=== PATIENT | female | born 1945 | race Caucasian/White ===

== ENCOUNTER 2022-07-01 13:01 | Outpatient (CLI) | payer MEDICARE, SELFPAY ==
--- NOTE | ~2022-07-01 | CT_ITS ---
EXAMINATION: CT abdomen pelvis wo con DATE: 07/01/2022 13:32 INDICATION: Calcium kidney stone TECHNIQUE: Computed tomography (CT) of the abdomen and pelvis was performed without intravenous contr ast. Automated exposure control and iterative reconstruction technique were employed. Exam dose: 173 .05 mGy-cm total exam DLP. COMPARISON: 07/01/2022 KUB FINDINGS: There is minimal dependent primarily right lower lobe atelectasis. Bilateral breast implants. Normal heart size. No pericardial or pleural effusion. The liver, gallbladder, spleen are unremarkable. No pancreatic mass lesion is evident. No bile duct o r pancreatic duct dilatation. Normal morphology of the kidneys. There are approximately 4 nonobstructing right renal calculi. No right ureteral calculus or hydrouret eronephrosis. Approximate 3 subtle nonobstructing left renal calculi. No left ureteral calculus or hydroureteroneph rosis is evident. The urinary bladder is evacuated. Normal appendix. Diverticulosis of the colon; no CT evidence of diverticulitis. No bowel obstruction, bowel wall thick ening, pneumatosis or intraperitoneal free air. 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 Right L5 pars interart icularis defect. IMPRESSION: Mild bilateral nonobstructive nephrolithiasis No ureteral calculus or hydroureteronephrosis Normal appendix Diverticulosis of the colon Reviewed, dictated and finalized at [facility]. Reviewed, dictated and finalized at [facility].
--- NOTE | ~2022-07-01 | XR_ITS ---
EXAM: XR abdomen/kub 1V DATE: 07/01/2022 13:32 HISTORY: CALCIUM KIDNEY STONE . COMPARISON: CT abdomen pelvis, same date. FINDINGS: Clear lung bases. Normal bowel gas pattern. No organomegaly. Scattered punctate calcificat ions over the bilateral renal shadows. Calcified diverticulum. Scattered mild vascular calcifications . Degenerative changes in the lumbar spine and bilateral hips. IMPRESSION: Bilateral nephrolithiasis. Reviewed, dictated and finalized at [facility]. IMPRESSION: Bilateral nephrolithiasis.
== END 2022-07-01 13:02 | disposition home or self-care (01) ==
PROVIDERS: Visit Provider Urology
DX: N20.0 Calculus of kidney (principal); K57.30 Diverticulosis of large intestine without perforation or abscess without bleeding
CPT/HCPCS: 74018; 74176